=== PATIENT | male | born 1945 | race Caucasian/White ===

== ENCOUNTER → 2019-01-05 | Day surgery (SDC) | payer MEDICARE, BC ==
[2019-01-02 15:58] VITALS: BMI 28.5
[~2019-01-05] MED LIST: BUPIVACAIN-EPI 0.5%-1:200,000 30 ML VIAL SQ ONE; DEXAMETHASONE SOD PHOSPHATE 10 MG/ML 1 ML VIAL IV ONE; HYDROmorphone 0.5 MG/0.5 ML SYRINGE IVP PRN; LACTATED RINGERS 1,000 ML IV ONE; LACTATED RINGERS 1,000 ML IV SCH; LIDOCAINE 1% 20 ML VIAL (10MG/ML) FOR IV START INTRADERMA PRN; LIDOCAINE 1% INJ 10MG/ML (20 ML MDV) ONE; MIDAZOLAM 2 MG/2 ML VIAL ONE; ONDANSETRON 4 MG/2 ML VIAL IVP ONE; PHENYLEPHRINE-0.9% NACL SYG 1 MG/10 ML SYRINGE ONE; PROPOFOL 10 MG/ML 20 ML VIAL IV ONE; Pre Op ABX Message 1 EACH MISC MISCELLANE ONE; ceFAZolin IN SWFI 2 GM/20 ML SYRINGE IVP ONE; fentaNYL (PF) 50 MCG/ML 2 ML AMP ONE
[2019-01-05 15:14] VITALS: TEMP 97
[2019-01-05 15:20] VITALS: RESP 16
[2019-01-05 15:42] VITALS: BP 118/80; PULSE 70
--- NOTE | 2019-01-06 14:25 | P.OP ---
Date of Procedure: 01/05/19 Preoperative Diagnosis: 1. Left carpal tunnel syndrome 2. 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 Left carpal tunnel syndrome 2. 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 Left endoscopic carpal tunnel release 2. Left ulnar nerve decompression with subcutaneous anterior transposition Anesthesia: JOY, local Surgeon: Robert Ahmadi Estimated Blood Loss (ml): 5 Pathology: none sent Condition: stable Disposition: PACU Indications for Procedure: The patient is a 73-year-old male who was diagnosed with left carpal and cubital tunnel syndrome with associated ulnar nerve instability. Based on the clinical and EMG severity, surgical release was recommended. Risks and benefits were reviewed with the patient in the office and again preoperatively. He denied additional questions and wished to proceed with surgery. The surgical sites were confirmed and marked. Consent forms were signed. Description of Procedure: The patient was positioned supine with the operative limb on an arm board. General anesthesia was administered uneventfully. The left upper extremity was then prepped and draped in standard, sterile fashion. A sterile tourniquet was placed on the left arm. A time-out was performed which confirmed the patient, the operative side, site and the procedure to be performed. All team members expressed agreement. The limb was exsanguinated with an Esmarch and the tourniquet was inflated. A transverse incision was marked just proximal to the wrist flexion crease, in line with the radial border of the ring finger. The skin was sharply incised and the subcutaneous tissues were spread. The volar carpal fascia was identified and sharply incised. A synovial elevator was used to release adhesions on the underside of the transverse carpal ligament. A dilator was used to sound and enlarge the carpal tunnel. The hamate hook was palpable ulnarly. The side-specific guide and camera were inserted. The ligament was clearly visualized above. The endoscopic blade was inserted and the distal half of the ligament was sharply incised. Residual transverse fibers were released distally and then the proximal portion of the ligament was divided. Wide release of ligament was visually confirmed. The camera was removed. Under direct visualization with loupe magnification, the volar carpal fascia was released distally and proximally with scissors. The wound was irrigated and the incision was covered while attention was turned to the elbow. A curvilinear incision was marked posterior to the medial epicondyle. The skin was sharply incised and the subcutaneous tissues were spread, cauterizing superficial vessels as needed. The ulnar nerve was identified posterior to the epicondyle. Several large, prominent veins were noted running alongside it. The nerve was traced proximally and the overlying adhesions were released. A large branch of the medial antebrachial cutaneous nerve was found crossing the ulnar nerve about 3 cm proximal to Koch's ligament. This was carefully mobilized and protected. Fascial adhesions over the nerve were released to approximately 8 cm above the epicondyle. The distal aspect of the medial intermuscular septum was released in anticipation of transposition. The nerve was then traced distally. Koch's ligament was released. A [place] drain was passed around the nerve for atraumatic handling. The fascia over the flexor- pronator musculature was incised and the muscle fibers were bluntly . A large motor branch to the FCU was identified and mobilized to facilitate transposition. A proximally-based flap of the flexor-pronator fascia was outlined. This was sharply incised and elevated off the underlying muscle, leaving it attached at the epicondyle. The ulnar nerve was then transposed anteriorly. A fascial sling was placed loosely over the nerve and tied to the adjacent in situ fascia with 2-0 Vicryl sutures. The elbow was then taken through a full range of motion. There was no tethering of the nerve proximally or distally and the nerve moved freely beneath the fascial sling. The tourniquet was released and good hemostasis was obtained with bipolar cautery. The wounds were thoroughly irrigated. Subcutaneous tissues at the elbow were reapproximated with 2-0 and 3-0 Vicryl sutures. The incision was closed with a running 4-0 Nylon. The wrist incision was closed with interrupted 4-0 Nylon sutures. Additional local anesthetic with epinephrine was injected for postoperative pain control and adjunctive hemostasis. A soft, sterile dressing was applied to the wrist. A sterile dressing was applied to the elbow, followed by posterior plaster splint with the elbow in approximately 60 of flexion. All sponge and needle counts were correct at the end of the case. The patient tolerated the procedure well and was transferred to recovery in stable condition.
== END ==
LOC: OR 10:37
PROVIDERS: ATTEND Orthopaedic Surgery
DX: G56.03 Carpal tunnel syndrome, bilateral upper limbs (principal); G56.23 Lesion of ulnar nerve, bilateral upper limbs; M19.022 Primary osteoarthritis, left elbow; M19.021 Primary osteoarthritis, right elbow; M18.12 Unilateral primary osteoarthritis of first carpometacarpal joint, left hand; E03.9 Hypothyroidism, unspecified; Z96.653 Presence of artificial knee joint, bilateral
CPT/HCPCS: 29848; 64718; J2250; J1100; J2405; J2001; J3010; J2370; J2704

== ENCOUNTER → 2025-03-04 | Outpatient (CLI) | payer MEDICARE ==
[2025-03-04 11:23] LABS: African American GFR (CKD) >90 (>60 ml/min/1.73 sqM); Blood Urea Nitrogen 23 mg/dL (9-20); Non-African American GFR(CKD) 80 (>60 ml/min/1.73 sqM)
--- NOTE | 2025-03-04 12:21 | CT ---
EXAMINATION TYPE: CT brain wo/w con DATE OF EXAM: 03/04/2025 12:02 PM COMPARISON: None. 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 Contrast used:100ml mL of Isovue 300 without and with IV Contrast, Oral contrast used: none. CT DLP: 2458 mGycm, Automated exposure control for dose reduction was used. FINDINGS: Extra-axial spaces: No abnormal extra-axial fluid collections. Ventricular system: Dilatation in proportion to cerebral atrophy. Cerebral parenchyma: Cerebral atrophy. No acute intraparenchymal hemorrhage or mass effect. The galindo -white junction is well differentiated. Scattered hypoattenuating areas are seen within the white mat ter. No abnormal enhancement is seen after the administration of intravenous contrast. Cerebellum: Unremarkable. Mass effect: No evidence of midline shift. Intracranial vasculature: Atherosclerotic calcifications of the intracranial vessels. No evidence for intracranial focal dilation to suggest aneurysm or high-grade stenosis. Soft tissues: Normal. Calvarium/osseous structures: No depressed skull fracture. Paranasal sinuses and mastoid air cells: Clear. Visualized orbits: Right aphakia the optic nerves appear rather symmetric. No enlarging mass. No abno rmal enhancement. The orbits are intact.. IMPRESSION: 1. No acute intracranial process and no evidence to suggest intracranial mass. 2. Nonspecific white matter changes, likely secondary to chronic small vessel ischemic disease. 3. No evidence for abnormality involving the globes or optic nerves. [facility], , 03/04/2025 12:19 PM
== END | disposition home or self-care (01) ==
LOC: RADCTMAIN 10:14
PROVIDERS: ATTEND Ophthalmology
DX: H47.291 Other optic atrophy, right eye (principal); R90.82 White matter disease, unspecified
CPT/HCPCS: 82565; 84520; 70470; 36415; Q9967